=== PATIENT | female | born 1965 | race African-American/Black ===

== ENCOUNTER 2018-05-16 08:44 | Day surgery (SDC) | payer OTHER ==
[2018-05-14 12:38] VITALS: BMI 38.2
[2018-05-16] MEDS ORDERED: MIDAZOLAM HCL 2 MG/2 ML SINGLE DOSE VIAL ONE (09:48)
[2018-05-16] MEDS ORDERED: PROPOFOL 20 ML ONE (09:48)
--- NOTE | 2018-05-16 11:08 | HP ---
History & Physical Update - History History: No Change Currently as noted:: Postmenopausal bleeding, uterine mass - Physical Physical: No Change - Assessment Assessment: No Change - Plan Plan: No Change Currently as noted:: Hysteroscopy, D&C, excision of uterine mass
--- NOTE | 2018-05-16 11:13 | OP ---
Operative Note - Note: Operative Date: 05/16/18 Pre-Operative Diagnosis: Postmenopausal bleeding, uterine mass Operation: hysteroscopy, D&C, excision of uterine mass Findings: Large right endometrial mass irregular in shape but with smooth contours. Atrophic endometrial lining Post-Operative Diagnosis: Same as Pre-op Surgeon: Hitesh Anderson Anesthesiologist/ANIMAL CONTROL LICENSING WORKER: Glenna Mccracken MD Anesthesia: General Specimens Removed: Endometrial mass, endometrial curettings Estimated Blood Loss (mls): 10 Blood Volume Replaced (mls): 0 Fluid Volume Replaced (mls): 600 Operative Report Dictated: Yes
[2018-05-16 11:25] VITALS: TEMP 98
[2018-05-16 15:30] VITALS: BP 130/70; PULSE 88
--- NOTE | 2018-05-16 18:43 | OP ---
DATE OF OPERATION: 05/16/2018 PREOPERATIVE DIAGNOSES: Postmenopausal bleeding, uterine/endometrial mass. POSTOPERATIVE DIAGNOSES: Postmenopausal bleeding, uterine/endometrial mass. PROCEDURE: Hysteroscopy, dilatation and curettage, excision of the uterine mass. SURGEON: Anali Hagen MD ANESTHESIOLOGIST: Glenna Mccracken MD INTRAVENOUS FLUIDS: 600 mL ESTIMATED BLOOD LOSS: 10 mL PATHOLOGY: Fragments of resected uterine mass and endometrial curettings. FINDINGS: Examination under anesthesia revealed a small anteverted uterus with no pelvic or adnexal masses palpable. Hysteroscopy revealed a large, right-sided endometrial mass, most likely approximately 1-2 cm in size with irregular contours but smooth surface. The endometrial lining appeared to be atrophic. Both fallopian tube ostia were visualized. There were no other lesions or masses inside the uterus. DESCRIPTION OF PROCEDURE: The patient was met preoperatively. Risks, benefits, and alternatives of surgery were discussed in details. All questions were answered. The patient was brought to the OR with the IV running. She was placed on a surgical table in the supine position. The general anesthesia was achieved without difficulty. The patient was then placed in a dorsal lithotomy position using adjustable Jerod stirrups. She was examined under anesthesia with the findings as described above. The timeout was conducted as per standard protocol. The patient was then prepped and draped in the usual sterile fashion. A weighted speculum was introduced inside the vagina with good visualization of the cervix. The cervix was grasped with a single-tooth tenaculum. The cervical os did not need to be dilated, and a diagnostic hysteroscopy was performed with a 6-mm hysteroscope. The hysteroscope was gently advanced through the cervical canal into the uterine cavity. A large endometrial/uterine mass was noted attached to the right uterine wall. The rest of the uterine cavity appeared to be normal with atrophic endometrium. Resection of the endometrial mass was then performed using a [employer] ([employer]) device. This was performed with excellent hemostasis and without complications. All of the tissue was aspirated during the procedure and sent to Pathology for evaluation. Once the resection was completed, the hysteroscope was removed. Sharp endometrial curettage was performed, and the tissue was also submitted to Pathology for evaluation. Following this, all of the instruments were removed from the patient. Sponge, lap, and instrument counts were correct. The patient was transferred to recovery room in stable condition and awake. ANALI HAGEN M.D. [id number]
--- NOTE | 2018-05-19 18:36 | PATH ---
Surgical Pathology Report Patient Name: ALLEN ALONSO [facility]. Rec. #: [id number] /Age/Gender: 1965 (Age: 53) / F Account: [id number] Location: [facility] SURGICAL Taken: 05/16/2018 Received: 05/16/2018 Reported: 05/19/2018 Physicians: Hitesh nAderson M.D. Specimen(s) Received A: POLYP, CERVICAL ENDOMETRIAL B: ENDOMETRIAL CURETTINGS Clinical History Polyp, excessive bleeding Final Diagnosis A. ENDOMETRIAL POLYPS, POLYPECTOMY: FRAGMENTS OF ENDOMETRIAL POLYP, LOWER UTERINE SEGMENT, BENIGN CERVICAL TISSUE, AND SMOOTH MUSCLE CONSISTENT WITH LEIOMYOMA. B. ENDOMETRIAL CURETTINGS, DILATION AND CURETTAGE: FRAGMENTS OF PROLIFERATIVE ENDOMETRIUM, LOWER UTERINE SEGMENT, RARE SMOOTH MUSCLE FRAGMENTS AND BENIGN ENDOCERVICAL TISSUE Electronically Signed Manda Rodriguez M.D. Gross Description A. Received in formalin labeled "endometrial polyp," is a 4.5 x 4.0 x 0.4 cm aggregate of ngeron, firm tissue fragments. The specimen is entirely submitted in 4 cassettes. B. Received in formalin labeled "endometrial curettings," is a 4.0 x 3.5 x 0.4 cm aggregate of red-brown soft tissue fragments admixed with blood clot. The formalin is filtered and the specimen is entirely submitted in 2 cassettes. saudi/05/16/2018
== END 2018-05-16 13:00 | disposition home or self-care (01) ==
LOC: JASU-SURG 08:44
PROVIDERS: ATTEND Obstetrics & Gynecology
PROC: 0U5B8ZZ Destruction of Endometrium, Via Natural or Artificial Opening Endoscopic (ICD-10-PCS; 2018-05-16)
PROC: 0UDB8ZX Extraction of Endometrium, Via Natural or Artificial Opening Endoscopic, Diagnostic (ICD-10-PCS; 2018-05-16)
PROC: 0UB98ZZ Excision of Uterus, Via Natural or Artificial Opening Endoscopic (ICD-10-PCS; principal; 2018-05-16 09:00)
PROC: 0UJD8ZZ Inspection of Uterus and Cervix, Via Natural or Artificial Opening Endoscopic (ICD-10-PCS; 2018-05-16 09:00)
DX: N95.0 Postmenopausal bleeding (principal); D25.9 Leiomyoma of uterus, unspecified
CPT/HCPCS: 84703; 88305-TC; 94760

== ENCOUNTER 2025-06-21 06:49 | Day surgery (SDC) | payer OTHER ==
[2025-06-16 10:40] VITALS: BMI 32.3
[2025-06-21] MEDS ORDERED: ACETAMINOPHEN INJECTION 100 ML ONE ×2 (12:34→16:12)
[2025-06-21] MEDS: ACETAMINOPHEN 1000 MG/100 ML BAG IVPB ONE ×2 (12:46→16:22)
[2025-06-21] MEDS ORDERED: MIDAZOLAM HCL 2 MG/2 ML SINGLE DOSE VIAL ONE (15:28)
[2025-06-21] MEDS ORDERED: PROPOFOL 20 ML ONE (15:28)
[2025-06-21] MEDS ORDERED: LIDOCAINE HCL/PF 2% SDV 5ML VIAL ONE (15:28)
[2025-06-21] MEDS ORDERED: DEXAMETHASONE SOD PHOSPHATE 4 MG/1 ML VIAL ONE (15:37)
[2025-06-21] MEDS ORDERED: ONDANSETRON 4 MG/2 ML VIAL ONE (15:37)
[2025-06-21] MEDS ORDERED: KETOROLAC TROMETHAMINE 30 MG/1 ML VIAL ONE (15:37)
[2025-06-21] MEDS ORDERED: ONDANSETRON 4 MG/2 ML VIAL IVPUSH PRN (16:13)
[2025-06-21] MEDS ORDERED: PROMETHAZINE HCL 25 MG/1 ML VIAL IVPB PRN (16:13)
[2025-06-21] MEDS: LACTATED RINGERS SOLUTION 1,000 ML IV SCH (16:23)
[2025-06-21 17:29] VITALS: RESP 18
[2025-06-21 18:17] VITALS: BP 137/69; PULSE 71; TEMP 97.6
== END 2025-06-21 18:30 | disposition home or self-care (01) ==
LOC: JASU-SURG 06:49
PROVIDERS: ATTEND Obstetrics & Gynecology
PROC: 0UB98ZZ Excision of Uterus, Via Natural or Artificial Opening Endoscopic (ICD-10-PCS; 2025-06-21)
PROC: 0UBC8ZZ Excision of Cervix, Via Natural or Artificial Opening Endoscopic (ICD-10-PCS; principal; 2025-06-21 12:00)
DX: N95.0 Postmenopausal bleeding (principal); N84.0 Polyp of corpus uteri; N84.1 Polyp of cervix uteri
CPT/HCPCS: 88305-TC; 94760